=== PATIENT | female | born 1995 | race Caucasian/White ===

== ENCOUNTER 2019-12-24 16:58 | Emergency (ER) | payer OTHER ==
[~2019-12-24] VITALS: Ht 165.1 cm; Wt 57.6 kg
[2019-12-24] MEDS ORDERED: PRENA1 TRUE CO1 EACH (17:03)
== END 2019-12-24 19:25 | disposition home or self-care (01) ==
LOC: ER 16:58
DX: O26.892 Other specified pregnancy related conditions, second trimester (principal); R10.2 Pelvic and perineal pain; Z34.02 Encounter for supervision of normal first pregnancy, second trimester

== ENCOUNTER 2020-06-03 04:50 | Inpatient (IN) | payer OTHER ==
[~2020-06-03] VITALS: Ht 165.1 cm; Wt 65.8 kg
[~2020-06-03 04:50] MED LIST: PRENA1 TRUE CO1 EACH
== END 2020-06-05 12:01 | disposition home or self-care (01) | DRG 807 ==
LOC: LDR 04:50 → OB/GYN 19:43
PROVIDERS: ADMIT Obstetrics & Gynecology; ATTEND Obstetrics & Gynecology
PROC: 10E0XZZ Delivery of Products of Conception, External Approach (ICD-10-PCS; principal; 2020-06-03)
PROC: 3E0P7VZ Introduction of Hormone into Female Reproductive, Via Natural or Artificial Opening (ICD-10-PCS; 2020-06-03)
PROC: 3E033VJ Introduction of Other Hormone into Peripheral Vein, Percutaneous Approach (ICD-10-PCS; 2020-06-03)
PROC: 4A1HXFZ Monitoring of Products of Conception, Cardiac Rhythm, External Approach (ICD-10-PCS; 2020-06-03)
DX: O24.420 Gestational diabetes mellitus in childbirth, diet controlled (principal); Z37.0 Single live birth; Z3A.39 39 weeks gestation of pregnancy; Z20.828 Contact with and (suspected) exposure to other viral communicable diseases